=== PATIENT | female | born 1990 | race Caucasian/White ===

== ENCOUNTER 2021-06-05 06:38 | Day surgery (SDC) | payer OTHER, SELFPAY ==
[~2021-06-05] VITALS: Ht 160 cm; Wt 78.0 kg
[2021-06-05] MEDS ORDERED: fentaNYL citrate 0.05 MG/ML VIAL ONE (08:32)
[2021-06-05] MEDS ORDERED: LIDOCAINE 2% 100 MG/5 ML UJET TP ONE (08:33)
[2021-06-05] MEDS ORDERED: MIDAZOLAM 2 MG/2 ML VIAL ONE ×2 (08:33)
[2021-06-05] MEDS ORDERED: diphenhydrAMINE 50 MG/ML VIAL ONE (08:33)
[2021-06-05] MEDS ORDERED: MIDAZOLAM 2 MG/2 ML VIAL IVP ONE (09:30)
[2021-06-05] MEDS ORDERED: fentaNYL citrate 0.05 MG/ML VIAL IVP ONE (09:30)
[2021-06-05] MEDS ORDERED: diphenhydrAMINE 50 MG/ML VIAL IVP ONE (09:30)
== END 2021-06-05 10:08 | disposition home or self-care (01) ==
LOC: MDS 06:38 → MMU 06:39 → MDS 10:08
PROVIDERS: ATTEND Internal Medicine Gastroenterology
DX: R10.9 Unspecified abdominal pain (principal); K63.5 Polyp of colon; K50.90 Crohn's disease, unspecified, without complications; Z20.822 Contact with and (suspected) exposure to COVID-19; Z79.899 Other long term (current) drug therapy
CPT/HCPCS: 45380; 45385; 81025; 87426; J1200; J2250; J3010